=== PATIENT | male | born 1985 | race Caucasian/White ===

== ENCOUNTER 2020-10-27 11:18 | Emergency (ER) | payer OTHER, SELFPAY ==
[2020-10-27 11:23] VITALS: BP 144/87; PULSE 99; RESP 14; TEMP 37.1; O2SAT 99
== END 2020-10-27 12:45 | disposition left against medical advice (07) ==
DX: R21 Rash and other nonspecific skin eruption (principal)
CPT/HCPCS: 99199

== ENCOUNTER 2021-02-26 06:08 | Emergency (ER) | payer OTHER, SELFPAY ==
--- NOTE | ~2021-02-26 | CT_ITS ---
EXAMINATION: CT abdomen pelvis w con INDICATION: Abdominal pain TECHNIQUE: Computed tomographic images of the abdomen and pelvis were obtained after the administrati on of 100 cc of Omnipaque 350 intravenous contrast. The dose-length product (DLP) was 961.01 mGy-cm. Automated exposure control and iterative reconstruction technique were employed. COMPARISON: None available FINDINGS: The lung bases are clear. The heart size is normal. The liver, spleen, pancreas, and adrena l glands are normal. Stones are present in the neck of the gallbladder. There is subtle fat stranding around the gallbladder neck. The kidneys are unremarkable. No pathologically enlarged abdominal or p elvic lymph nodes are identified. The appendix is normal. There is no free intraperitoneal gas or kelsey dence of bowel obstruction. There is liquid stool throughout the colon to the level of the rectum. A tiny fat-containing umbilical hernia is noted. IMPRESSION: 1. Cholelithiasis with subtle fat stranding near the gallbladder neck which could reflect early kyle cystitis. Consider further evaluation with ultrasound and/or nuclear hepatobiliary scan. Reviewed, dictated and finalized at location A. IMPRESSION: 1. Cholelithiasis with subtle fat stranding near the gallbladder neck which cou ld reflect early cholecystitis. Consider further evaluation with ultrasound and /or nuclear hepatobiliary scan.
--- NOTE | ~2021-02-26 | US_ITS ---
EXAMINATION: US abdomen limited DATE: 02/26/2021 10:36 INDICATION: Right upper quadrant pain TECHNIQUE: Multiple grayscale and Doppler ultrasound images of the abdomen were obtained. COMPARISON: CT from today FINDINGS: The head and body of the pancreas are normal. The pancreatic tail is obscured by bowel gas. The liver is normal with normal echogenicity and echotexture. No surface nodularity. Normal hepatope brenda flow in the main portal vein. The gallstones identified on CT are not definitely identified. Ther e is mild wall thickening of the gallbladder which measures up to 6 mm. The normal common bile duct m easures 4 mm. There was no sonographic Jarrell sign although sensitivity can be decreased by pain medi cation. IMPRESSION: 1. Gallbladder wall thickening without identification of the stones seen on the comparison CT. Findin g is equivocal for acute cholecystitis. Reviewed, dictated and finalized at location A. IMPRESSION: 1. Gallbladder wall thickening without identification of the stones seen on the comparison CT. Finding is equivocal for acute cholecystitis.
--- NOTE | 2021-02-26 06:13 | ECG_ITS ---
Measurements Intervals [place] Rate: 78 P: 16 MI: 152 QRS: 61 QRSD: 105 T: 41 QT: 370 QTc: 423 Interpretive Statements SINUS RHYTHM WITH SINUS ARRHYTHMIA BASELINE ARTIFACT- II, III, AVF, V1, V4-V6 NORMAL ECG Electronically Signed On 02-26-2021 6:57:33 CDT by Seth Zuñiga D.O.
[2021-02-26 06:15] VITALS: BP 148/107; PULSE 81; RESP 12; TEMP 37.2; O2SAT 100
--- NOTE | 2021-02-26 06:29 | ED.GENADULT ---
HPI - General Adult General Chief complaint: Abdominal Pain <Estuardo Huitron MD - Last Filed: 02/26/21 07:18> Stated complaint: Abd pain <Estuardo Huitron MD - Last Filed: 02/26/21 07:18> Time Seen by Provider: 02/26/21 06:27 <Estuardo Huitron MD - Last Filed: 02/26/21 07:18> History of Present Illness HPI narrative: Patient 35-year-old gentleman who presents the emergency department with chief complaint of epigastric pain and right upper quadrant pain. The patient reports that the pain began this evening after he over ate patient reports he was eating tacos last night and started having pain in his right upper quadrant. Patient states it also is in the epigastric region. Patient denies fever denies chills reports that he took some Maalox laxatives and other things to try to calm his stomach. The patient states that his abdomen does not feel comfortable and reports that he cannot get comfortable and its been hurting all throughout the night constant <Estuardo Huitron MD - Last Filed: 02/26/21 07:18> Related Data Allergies/adverse reactions: Allergies Allergy/AdvReac Type Severity Reaction Status Date / Time No Known Allergies Allergy Verified 10/18/17 01:49 <Estuardo Huitron MD - Last Filed: 02/26/21 07:18> Review of Systems Review of Systems: A 10 system review of systems was completed on the patient and is negative except for what is stated in the HPI. Nursing and ancillary documentation was reviewed. <Estuardo Huitron MD - Last Filed: 02/26/21 07:18> Exam Narrative: GENERAL: Well-appearing, well-nourished, and in mild pain distress distress. HEAD: Normocephalic, atraumatic. EYES: PERRLA and EOMI. ENT: Nares clear, no rhinorrhea or epistaxis. Mucous membranes moist. NECK: Supple. CHEST: Clear to auscultation. No respiratory distress. HEART: Regular rate and rhythm. No murmur heard. Normal peripheral pulses. ABDOMEN: Soft, nontender, nondistended, normal active bowel sounds. EXTREMITIES: Normal range of motion. No edema. SKIN: Warm, dry, no rash. NEURO: No focal deficits. Alert and oriented x3. PSYCH: Normal mood and affect. <Estuardo Huitron MD - Last Filed: 02/26/21 07:18> Course Reevaluation(s) Reevaluation #1: Currently patient is asymptomatic, declined to be hospitalized for surgery. Promising to follow-up with the surgeon within the next 48 hours, but cannot have it today or tomorrow. <Anel Lebron MD - Last Filed: 02/26/21 11:10> Date: 02/26/21 <Anel Lebron MD - Last Filed: 02/26/21 11:10> Time: 11:03 <Anel Lebron MD - Last Filed: 02/26/21 11:10> Consultations Consultation #1: Dr. Hoang <Anel Lebron MD - Last Filed: 02/26/21 11:10> Date: 02/26/21 <Anel Lebron MD - Last Filed: 02/26/21 11:10> Time: 11:04 <Anel Lebron MD - Last Filed: 02/26/21 11:10> Vital Signs Vital signs: Vital Signs Temperature 37.2 C 02/26/21 06:15 Pulse Rate 81 02/26/21 06:15 Respiratory Rate 12 02/26/21 06:15 Blood Pressure 148/107 H 02/26/21 06:15 Pulse Oximetry 100 02/26/21 06:15 Temperature 37.2 C 02/26/21 06:15 Pulse Rate 66 02/26/21 10:15 Respiratory Rate 20 02/26/21 10:15 Blood Pressure 119/77 02/26/21 10:15 Pulse Oximetry 98 02/26/21 10:15 <Estuardo Huitron MD - Last Filed: 02/26/21 07:18> Vital Signs Temperature 37.2 C 02/26/21 06:15 Pulse Rate 81 02/26/21 06:15 Respiratory Rate 12 02/26/21 06:15 Blood Pressure 148/107 H 02/26/21 06:15 Pulse Oximetry 100 02/26/21 06:15 Temperature 37.2 C 02/26/21 06:15 Pulse Rate 66 02/26/21 10:15 Respiratory Rate 20 02/26/21 10:15 Blood Pressure 119/77 02/26/21 10:15 Pulse Oximetry 98 02/26/21 10:15 <Anel Lebron MD - Last Filed: 02/26/21 11:10> Medical Decision Making Vital Signs Vital Signs: Vital Signs Temperature
[2021-02-26] MEDS: SODIUM CHLORIDE 0.9% IV 1,000 ML 999 ML IV CONT (06:40)
[2021-02-26] MEDS: ONDANSETRON INJ 4 MG/2 ML VIAL IV PUSH (06:40)
[2021-02-26] MEDS: MORPHINE SULFATE (*CRX) 4 MG/ML INJ IV PUSH (06:40)
--- NOTE | 2021-02-26 06:43 | PC.NURSE ---
pt not able to urinate at this time. urinal at bedside with pt.
[2021-02-26 06:48] LABS: Basophils Absolute Auto 0.1 K/mm3 (0.0-0.1); Basophils Percent Auto 0.8 % (0.2-1.2); Eosinophils Absolute Auto 0.2 K/mm3 (0-0.3); Eosinophils Percent Auto 2.1 % (0-4.4); Hematocrit 43.1 % (42.0-52.0); Hemoglobin 14.2 g/dL (14.0-18.0); Immature Granulocyte Absolute 0.07 K/mm3 (0.00-0.031); Immature Granulocyte Percent A 0.7 % (0-0.5); Lymphocytes Absolute Auto 2.95 K/mm3 (0.9-3.2); Lymphocytes Percent Auto 27.9 % (18.3-44.2); Mean Corpuscular HGB Conc 32.9 g/dl (32-36); Mean Corpuscular Hemoglobin 28.8 pg (26-34); Mean Corpuscular Volume 87.4 fl (80-100); Mean Platelet Volume 9.3 fl (7.4-10.4); Monocytes Absolute Auto 0.8 K/mm3 (0.1-0.6); Monocytes Percent Auto 7.2 % (2.6-8.5); Neutrophils Absolute Auto 6.5 K/mm3 (1.3-6.7); Neutrophils Percent Auto 61.3 % (45.5-73.1); Platelet Count Result 316 k/mm3 (150-375); Red Blood Count 4.93 M/mm3 (4.6-6.20); Red Cell Distribution Width 13.3 % (11.5-14.5); White Blood Count 10.6 K/mm3 (4.5-10.0)
--- NOTE | 2021-02-26 06:56 | PC.NURSE ---
pt still not able to urinate at this time. refused straight cath.
[2021-02-26 06:58] VITALS: BP 136/86; PULSE 70; RESP 18; O2SAT 100
[2021-02-26 07:03] LABS: Lipase 118 U/L (23-300)
[2021-02-26 07:04] LABS: Alanine Aminotransferase 33 U/L (4-50); Albumin Level 4.4 g/dL (3.5-5.1); Alkaline Phosphatase 70 U/L (38-126); Anion Gap 3 mmol/L (8-16); Aspartate Amino Transferase 28 U/L (17-59); Bilirubin,Total 0.2 mg/dL (0.2-1.3); Blood Urea Nitrogen 18 mg/dL (9-20); Calcium 9.4 mg/dL (8.4-10.2); Carbon Dioxide 26 mmol/L (22-30); Chloride 106 mmol/L (98-107); Estimated Glomerular Filt Rate > 60; Glucose 130 mg/dL (65-110); Sodium 135 mmol/L (137-145)
[2021-02-26 07:16] LABS: Troponin I < 0.012 ng/mL (0.000-0.034)
[2021-02-26 07:52] LABS: Add Urine Microscopic? NO; Appearance Urine Clear (Clear); Bilirubin Urine Negative (Negative); Blood Urine Negative (Negative); Color Urine Yellow (Yellow); Glucose Urine UA Negative (Negative); Ketones Urine Negative (Negative); Leukocyte Esterase Ur Negative LEU/UL (Negative); Nitrate Urine Negative (Negative); Protein Urine Negative (Negative); Urobilinogen Urine Negative mg/dL (<2.0)
[2021-02-26 07:56] LABS: Specific Grav Ur 1.038 (1.001-1.035)
[2021-02-26 08:18] VITALS: BP 124/69; PULSE 65; RESP 20; O2SAT 99
[2021-02-26 09:19] VITALS: PULSE 63; RESP 20; O2SAT 99
[2021-02-26 10:15] VITALS: BP 119/77; PULSE 66; RESP 20; O2SAT 98
[2021-02-26 11:19] VITALS: BP 105/55; PULSE 78; RESP 18; O2SAT 98
== END 2021-02-26 11:19 | disposition home or self-care (01) ==
PROVIDERS: Emergency Medicine; Emergency Provider Emergency Medicine
DX: K81.9 Cholecystitis, unspecified (principal)
CPT/HCPCS: 36415; 74177; 76705; 80053; 81003; 83690; 84484; 85025; 93005; 96361; 96374; 96375; 99284; J2270; J2405; J7030; Q9967

== ENCOUNTER 2021-03-03 11:54 | Outpatient (CLI) | payer OTHER, SELFPAY ==
--- NOTE | ~2021-03-03 | NM_ITS ---
EXAMINATION: NM hepatobiliary wo pharm DATE: 03/03/2021 16:20 INDICATION: Bile duct calculus COMPARISON: Ultrasound and CT studies dated 02/26/2021 TECHNIQUE: mCi Tc-99m mebrofenin (Choletec) was administered intravenously. Scintigraphic images of the abdomen were obtained for one hour. Additional 4 hour delayed AP and lateral scintigrams were obt ained.. FINDINGS: There is normal clearance of radiotracer from the blood pool. There is homogeneous tracer u ptake by the liver. Activity progresses to the bowel. No gallbladder activity identified in the 4 ho urs of imaging with suggest acute cholecystitis. IMPRESSION: 1. Nonvisualization of the gallbladder over 4 hours of imaging which is consistent with acute cholec ystitis. Reviewed, dictated and finalized at location A. IMPRESSION: 1. Nonvisualization of the gallbladder over 4 hours of imaging which is consis tent with acute cholecystitis.
== END 2021-03-03 11:55 | disposition home or self-care (01) ==
LOC: ANHIMG 12:00
PROVIDERS: Visit Provider Nurse Practitioner
DX: K80.50 Calculus of bile duct without cholangitis or cholecystitis without obstruction (principal)
CPT/HCPCS: 78226; A9537

== ENCOUNTER 2021-03-04 11:23 | Outpatient (CLI) | payer OTHER, SELFPAY ==
[2021-03-09 19:24] LABS: H pylori Ag Stool Not Detected (Not Detected)
== END 2021-03-04 11:24 | disposition home or self-care (01) ==
LOC: ANHLAB 11:24
PROVIDERS: Visit Provider Surgery
DX: K80.50 Calculus of bile duct without cholangitis or cholecystitis without obstruction (principal); R10.11 Right upper quadrant pain
CPT/HCPCS: 87338

== ENCOUNTER 2021-03-30 05:30 | Emergency (ER) | payer OTHER, SELFPAY ==
--- NOTE | ~2021-03-30 | US_ITS ---
EXAMINATION: US abdomen limited DATE: 03/30/2021 07:49 INDICATION: Cholelithiasis presenting with right upper quadrant abdominal pain. TECHNIQUE: Multiple grayscale and Doppler ultrasound images of the abdomen were obtained. COMPARISON: 02/26/2021 FINDINGS: The region of the pancreas is obscured by shadowing gas in the stomach. Liver has normal echogenicity and contour, with a smooth surface. No liver lesion identified. No intrahepatic biliary duct dilatio n suspected. Portal venous flow was seen in the hepatopetal, normal direction and has normal Doppler waveform. Again seen are a few shadowing gallstones and hypoechoic sludge in the dependent aspect of the normal-appearing gallbladder. Sonographic Jarrell sign was reported as negative by the wrist liner .Common bile duct measures 4 mm diameter which is normal. IMPRESSION: 1. Cholelithiasis. Reviewed, dictated and finalized at location A. IMPRESSION: 1. Cholelithiasis.
--- NOTE | 2021-03-30 05:37 | ED.ABDPAIN ---
HPI - Abdominal Pain General Chief Complaint: Abdominal Pain Stated Complaint: gallbladder attack Time Seen by Provider: 03/30/21 05:36 Source: patient and family Mode of arrival: ambulatory Limitations: no limitations History of Present Illness HPI narrative: Patient is a 35-year-old male with a history of biliary colic who presents for evaluation of right upper quadrant abdominal pain. Patient reports the pain awakened him from sleep approximately an hour ago. It is severe in nature, located in the right upper quadrant with mild radiation to the right back. No ripping or tearing sensation to the flank. No chest pain, palpitations or shortness of breath. Patient denies fever or chills. He reports nausea without vomiting. He denies lower abdominal pain, diarrhea, constipation or urinary symptoms. Patient has a history of biliary colic in the past which she was seen at this facility in February and has followed up with Dr. Hoang outpatient. Patient had a HIDA scan which showed abnormal bile flow, abnormal valve function per the patient. Patient saw Dr. Hoang in the office yesterday and is scheduled for surgery on April 12. Related Data Allergies Allergy/AdvReac Type Severity Reaction Status Date / Time No Known Allergies Allergy Verified 03/30/21 05:48 Review of Systems Review of Systems: CONSTITUTIONAL: Denies fever, chills, or sweats. ENT: Denies rhinorrhea, congestion CARDIOVASCULAR: Denies chest pain, palpitations, or edema. RESPIRATORY: Denies cough or dyspnea. GASTROINTESTINAL: Reports abdominal pain, nausea without vomiting, denies diarrhea GENITOURINARY: Denies dysuria or hematuria. SKIN: Denies rash or itching. MUSCULOSKELETAL: Denies middle back pain, joint pain, or myalgia. [facility] Past Medical History Medical History Biliary colic BMI 34.0-34.9,adult Cholecystitis History of bronchitis RUQ abdominal pain Smoker Surgical History Surgical History S/P foot surgery, left Family History Family History Mother Cerebrovascular accident Acute myocardial infarction Unknown Diabetes mellitus Cerebrovascular accident Hypertension Social History Social History Smoking status: Current every day smoker Alcohol intake: never Exam Narrative: GENERAL: Awake, alert, conversant HEAD: Normocephalic, atraumatic. EYES: PERRLA and EOMI. ENT: Nares clear, no rhinorrhea or epistaxis. Mucous membranes moist. NECK: Supple. CHEST: No respiratory distress, breathing even and non labored HEART: Regular rate, sinus rhythm ABDOMEN:Non distended, right upper quadrant abdominal pain on exam, positive guarding, no rebound, no rigidity, no epigastric pain EXTREMITIES: Normal range of motion. No edema. SKIN: Warm, dry, no rash. NEURO:No focal deficits. Alert and oriented x3 Course Vital Signs Vital signs: Vital Signs Temperature 36.7 C 03/30/21 05:43 Pulse Rate 83 03/30/21 05:43 Respiratory Rate 20 03/30/21 05:43 Blood Pressure 151/92 H 03/30/21 05:43 Pulse Oximetry 97 03/30/21 05:43 Temperature 36.7 C 03/30/21 05:43 Pulse Rate 83 03/30/21 05:43 Respiratory Rate 20 03/30/21 05:43 Blood Pressure 151/92 H 03/30/21 05:43 Pulse Oximetry 97 03/30/21 05:43 MDM - Abdominal Pain MDM Narrative Medical decision making narrative: Pt with RUQ abdominal pain. Pt with history of biliary colic. Pt with symptoms consistent with this at this point. No leukocytosis. No significant anemia. No transaminitis. No elevation in lipase. No LOC. No hyperbilirubinemia. Pt awaiting RUQ US. Signed out to oncoming physician Dr. Lebron, who will dictate the ultimate care of this patient. Differential Diagnosis Differential diagnosis: Likely abdominal pain, constipation, diverticulitis, gastroenteritis and pancreatitis Lab Data Attestation:
[2021-03-30 05:43] VITALS: BP 151/92; PULSE 83; RESP 20; TEMP 36.7; O2SAT 97
[2021-03-30] MEDS: SODIUM CHLORIDE 0.9% IV 1,000 ML 999 ML IV CONT (05:58)
[2021-03-30] MEDS: MORPHINE SULFATE (*CRX) 4 MG/ML INJ IV PUSH (05:58)
[2021-03-30] MEDS: ONDANSETRON INJ 4 MG/2 ML VIAL IV PUSH (05:58)
[2021-03-30 06:10] LABS: Basophils Absolute Auto 0.1 K/mm3 (0.0-0.1); Eosinophils Absolute Auto 0.2 K/mm3 (0-0.3); Eosinophils Percent Auto 2.9 % (0-4.4); Hematocrit 39.7 % (42.0-52.0); Hemoglobin 12.8 g/dL (14.0-18.0); Immature Granulocyte Absolute 0.02 K/mm3 (0.00-0.031); Immature Granulocyte Percent A 0.3 % (0-0.5); Lymphocytes Absolute Auto 2.84 K/mm3 (0.9-3.2); Lymphocytes Percent Auto 39.7 % (18.3-44.2); Mean Corpuscular HGB Conc 32.2 g/dl (32-36); Mean Corpuscular Hemoglobin 28.2 pg (26-34); Mean Corpuscular Volume 87.4 fl (80-100); Mean Platelet Volume 9.5 fl (7.4-10.4); Monocytes Absolute Auto 0.7 K/mm3 (0.1-0.6); Monocytes Percent Auto 10.3 % (2.6-8.5); Neutrophils Absolute Auto 3.3 K/mm3 (1.3-6.7); Neutrophils Percent Auto 45.8 % (45.5-73.1); Platelet Count Result 288 k/mm3 (150-375); Red Blood Count 4.54 M/mm3 (4.6-6.20); Red Cell Distribution Width 12.9 % (11.5-14.5); White Blood Count 7.2 K/mm3 (4.5-10.0)
[2021-03-30 06:39] LABS: Alanine Aminotransferase 28 U/L (4-50); Albumin Level 3.7 g/dL (3.5-5.1); Alkaline Phosphatase 69 U/L (38-126); Anion Gap 6 mmol/L (8-16); Aspartate Amino Transferase 24 U/L (17-59); Bilirubin,Total 0.1 mg/dL (0.2-1.3); Blood Urea Nitrogen 16 mg/dL (9-20); Calcium 8.9 mg/dL (8.4-10.2); Carbon Dioxide 27 mmol/L (22-30); Chloride 107 mmol/L (98-107); Estimated CRCL calculation 129 ml/min; Estimated Glomerular Filt Rate > 60; Glucose 139 mg/dL (65-110); Lipase 99 U/L (23-300); Potassium 3.5 mmol/L (3.4-5.0); Sodium 140 mmol/L (137-145)
[2021-03-30 07:30] VITALS: BP 130/85; PULSE 63; RESP 16; O2SAT 99
[2021-03-30 07:56] LABS: Platelet Estimate Adequate (Adequate)
[2021-03-30 07:57] LABS: Atypical Lymphocytes Present
[2021-03-30 11:21] VITALS: BP 129/78; PULSE 76; RESP 16; O2SAT 99
== END 2021-03-30 11:20 | disposition home or self-care (01) ==
PROVIDERS: Emergency Medicine; Emergency Provider Emergency Medicine
DX: R10.11 Right upper quadrant pain (principal); K80.20 Calculus of gallbladder without cholecystitis without obstruction; F17.200 Nicotine dependence, unspecified, uncomplicated
CPT/HCPCS: 36415; 76705; 80053; 83690; 85025; 96361; 96374; 96375; 99284; J2270; J2405; J7030

== ENCOUNTER 2021-04-08 13:46 | Outpatient (CLI) | payer OTHER, SELFPAY ==
[2021-04-08 14:13] LABS: Basophils Absolute Auto 0.1 K/mm3 (0.0-0.1); Eosinophils Absolute Auto 0.2 K/mm3 (0-0.3); Eosinophils Percent Auto 2.5 % (0-4.4); Hematocrit 40.9 % (42.0-52.0); Hemoglobin 13.6 g/dL (14.0-18.0); Immature Granulocyte Absolute 0.04 K/mm3 (0.00-0.031); Immature Granulocyte Percent A 0.5 % (0-0.5); Lymphocytes Absolute Auto 3.36 K/mm3 (0.9-3.2); Lymphocytes Percent Auto 40.5 % (18.3-44.2); Mean Corpuscular HGB Conc 33.3 g/dl (32-36); Mean Corpuscular Hemoglobin 29.6 pg (26-34); Mean Corpuscular Volume 88.9 fl (80-100); Mean Platelet Volume 9.1 fl (7.4-10.4); Monocytes Percent Auto 11.8 % (2.6-8.5); Neutrophils Absolute Auto 3.6 K/mm3 (1.3-6.7); Neutrophils Percent Auto 43.7 % (45.5-73.1); Platelet Count Result 274 k/mm3 (150-375); Red Cell Distribution Width 13.2 % (11.5-14.5); White Blood Count 8.3 K/mm3 (4.5-10.0)
[2021-04-08 14:21] LABS: Alanine Aminotransferase 33 U/L (4-50); Albumin Level 4.3 g/dL (3.5-5.1); Alkaline Phosphatase 69 U/L (38-126); Amylase 56 U/L (30-110); Anion Gap 8 mmol/L (8-16); Aspartate Amino Transferase 30 U/L (17-59); Bilirubin,Total 0.4 mg/dL (0.2-1.3); Blood Urea Nitrogen 13 mg/dL (9-20); Calcium 9.5 mg/dL (8.4-10.2); Carbon Dioxide 28 mmol/L (22-30); Chloride 103 mmol/L (98-107); Estimated Glomerular Filt Rate > 60; Glucose 112 mg/dL (65-110); Lipase 53 U/L (23-300); Potassium 3.8 mmol/L (3.4-5.0); Sodium 139 mmol/L (137-145)
== END 2021-04-08 13:47 | disposition home or self-care (01) ==
PROVIDERS: Visit Provider Surgery
DX: K81.9 Cholecystitis, unspecified (principal); Z01.818 Encounter for other preprocedural examination
CPT/HCPCS: 36415; 80053; 82150; 82248; 83690; 85025

== ENCOUNTER 2021-04-12 00:26 | Day surgery (SDC) | payer OTHER, SELFPAY ==
[2021-04-04 14:54] VITALS: BMI 34.2
[2021-04-12] VITALS (11 sets, daily range): BP systolic 121–155; BP diastolic 70–90; PULSE 62–89; RESP 10–18; TEMP 35.9–36.6; O2SAT 95–100
--- NOTE | 2021-04-12 11:29 | P.PNAN_ITS ---
Anes - Initial Pre Proc Eval Procedure: Operation Date: 04/12/21 11:45 Proposed Procedures p Laparoscopic Cholecystectomy, Possible Intraoperative Cholangiogram, Possible Open - Rakesh Hoang MD Date/Time: 04/12/21 11:29 Surgeon: Rakesh Hoang MD Pre Op Diagnosis: cholecystitis Patient Data Age: 35 Gender: M Height: 1.73 m Weight: 102 kg Allergies Allergy/AdvReac Type Severity Reaction Status Date / Time No Known Allergies Allergy Verified 04/12/21 11:00 Home Medications Medication Instructions Recorded Confirmed Type hydrocodone 5 mg-acetaminophen 325 1 tablet PO Q8H PRN #10 tablet 03/07/21 04/12/21 Rx mg tablet Patient hx anesthesia problems: none Family hx anesthesia problems: none Results Review: All pre-operative results and documents have been reviewed as part of the pre-operative evaluation. [facility] Past Medical History Medical History Biliary colic BMI 34.0-34.9,adult Cholecystitis History of bronchitis RUQ abdominal pain Smoker Surgical History Surgical History S/P foot surgery, left Family History Family History Mother Cerebrovascular accident Acute myocardial infarction Unknown Diabetes mellitus Cerebrovascular accident Hypertension Social History Social History Smoking packs per day: 1 Smoking cigarettes per day: 20.0 Years smoked: 15 Smoking pack-years: 15.00 Smoking status: Current every day smoker Tobacco type: cigarettes Alcohol intake: never Substance use: never Substance use type: does not use Living arrangements: with friend(s) Spiritual care concerns: No Anes - Eval Final PreProcedure Day of Procedure 04/12/21 11:29 Patient weight: obese Heart: regular rate and rhythm Lungs: decreased breath sounds Airway: Mallampati scale class II Neurological: alert and oriented Last oral intake: >/= 8 hours ASA classification: II Emergent: no Anesthetic plan: proceed Anesthesia type and monitoring: general ETT and standard monitoring Results Review: All pre-operative results and documents have been reviewed as part of the pre-operative evaluation. Informed Consent: The patient's anesthetic plan and its attendant risks and bene fits were discussed with the patient/family/POA. Questions were solicited and answers provided to the satisfaction of the patient/family/POA.
[2021-04-12] MEDS: LACTATED RINGERS 1,000 ML 30 ML IV CONT ×2 (11:30→14:05)
[2021-04-12] MEDS: ACETAMINOPHEN 500 MG TABLET 1000 MG PO (11:32)
[2021-04-12] MEDS: KETOROLAC 15 MG/ML VIAL (*BKC) IV PUSH (11:32)
--- NOTE | 2021-04-12 11:50 | WPDHPUPDATE1 ---
History and Physical Update Update Date/Time: 04/12/21 11:50 History and Physical has been reviewed, including an updated exam of the patient. There are NO changes in the patient's condition. Risks, benefits, and alternatives have been discussed and questions answered. Patient agrees to proceed with procedure.
[2021-04-12] MEDS: ceFAZolin 2 GM/D5W 50 ML 2 GM/50 ML BAG IVPB (11:54)
[2021-04-12] MEDS: BUPIVACAINE HCL 0.5% PF 30 ML VIAL INFILTRATE (12:30)
--- NOTE | 2021-04-12 14:09 | W.PM.PROC2 ---
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 However the patient was not having much pain therefore we waited a good time to let all the inflammatory process settle down and try to perform his gallbladder surgery in a less acute situation. Findings The gallbladder looked fairly normal on its most upper anterior half. The lower half was densely adhered to omental adhesions. A small yellow stone could be seen through this thin gallbladder wall at the neck. Description of Procedure Procedure Details: Patient was seen preoperatively in the holding area and risks, benefits and alternatives confirmed. Patient was taken to the operating room and general anesthesia was induced. A time out was then preformed with the surgery team confirming patient and site of surgery. The abdomen was prepped and draped in the usual sterile fashion. Incision was made just below the umbilicus. Two stay sutures of O- Vicryl were used to elevate the mid-line fascia beneath the umbilicus and a small incision was made under direct vision. The peritoneum was entered. The 12 mm Jj cannula was introduced under direct vision. First under low flow and then under high flow the abdomen was insufflated with carbon dioxide never exceeding a pressure of 14. Three 5 mm trocars were then introduced under direct vision. The following trocars were introduced under direct vision: a 5 mm in the epigastrium and two 5 mm trocars along the right costal margin. There were significant adhesions of the omentum to the underside of the gallbladder and these were taken down with blunt and sharp dissection. These were well formed and fairly dense but they came down fairly well with a slow methodical dissection. I was able to delineate the neck of the gallbladder and a short cystic duct. As we were putting tension on the lower part of the gallbladder to dissect it we could see a yellowish stone at the neck through with a thin gallbladder wall. The cystic duct seemed to be only about 1 cm long. Bovie cautery was used for hemostasis. I used a combination of blunt and sharp dissection to delineate the triangle of Calot. The gall bladder was grasped and the cystic duct and artery were dissected free and I carefully identified a window of safety with only two other structures in the area being the cystic duct and the cystic artery.(which did branch near the gallbladder). I then used a 5 mm endo-clip medical office receptionist assistant to place 2 clips on the patient's side 1 on the gallbladder side on the cystic artery and 1 clip on the gallbladder side of the cystic duct and the the cystic duct was also clipped with a 5 mm endoclip-medical office receptionist assistant placing 2 clips on the patient's side of the cystic duct. The cystic duct was then transected. The cystic artery was also transected at this point. The gall bladder was removed using electrocautery and then removed [using a large 10 mm grasper] via the umbilical incision. The trocars were removed visualizing hemostasis and the remaining gas evacuated. The large trocar site at the umbilicus was closed with [an 0 vicryl figure of 8 suture][with several interrupted sutures of 0 Vicryl because of the increased size of the opening at the umbilicus required to remove the gallbladder]. The 2 stay sutures mentioned above on either side of the fascia were also tied together to help approximate this midline fascia. Further local anesthetic was placed into each incision for postop pain control. The skin incisions were closed with subcuticular suture of [4-0 Monocryl]. Surgical glue then was applied to all the incisions. Patient tolerated the procedure well was taken to
== END 2021-04-12 16:25 | disposition home or self-care (01) ==
PROVIDERS: Visit Provider Surgery
PROC: 0FT44ZZ Resection of Gallbladder, Percutaneous Endoscopic Approach (ICD-10-PCS; CPT 47562; principal; 2021-04-12 11:45)
DX: K80.10 Calculus of gallbladder with chronic cholecystitis without obstruction (principal); F17.210 Nicotine dependence, cigarettes, uncomplicated; E66.9 Obesity, unspecified; Z68.33 Body mass index [BMI] 33.0-33.9, adult
CPT/HCPCS: 47562; 88304; A9270; J0690; J1100; J1885; J2250; J2405; J2704; J2710; J3010; J7030; J7120; Q9966

== ENCOUNTER 2021-05-27 12:21 | Outpatient (CLI) | payer OTHER, SELFPAY ==
[2021-05-27 13:03] LABS: Hemoglobin 13.8 g/dL (14.0-18.0); Mean Corpuscular HGB Conc 33.7 g/dl (32-36); Mean Corpuscular Hemoglobin 29.7 pg (26-34); Mean Corpuscular Volume 88.2 fl (80-100); Mean Platelet Volume 9.1 fl (7.4-10.4); Platelet Count Result 312 k/mm3 (150-375); Red Blood Count 4.65 M/mm3 (4.6-6.20); White Blood Count 9.1 K/mm3 (4.5-10.0)
[2021-05-27 13:20] LABS: Alanine Aminotransferase 32 U/L (4-50); Albumin Level 4.2 g/dL (3.5-5.1); Alkaline Phosphatase 72 U/L (38-126); Anion Gap 5 mmol/L (8-16); Aspartate Amino Transferase 29 U/L (17-59); Bilirubin,Total 0.4 mg/dL (0.2-1.3); Blood Urea Nitrogen 16 mg/dL (9-20); Calcium 9.8 mg/dL (8.4-10.2); Carbon Dioxide 31 mmol/L (22-30); Chloride 102 mmol/L (98-107); Estimated Glomerular Filt Rate > 60; Glucose 122 mg/dL (65-110); Lipase 67 U/L (23-300); Potassium 4.1 mmol/L (3.4-5.0); Sodium 138 mmol/L (137-145)
== END 2021-05-27 12:22 | disposition home or self-care (01) ==
PROVIDERS: Visit Provider Surgery
DX: R10.11 Right upper quadrant pain (principal)
CPT/HCPCS: 36415; 80053; 83690; 85027

== ENCOUNTER 2021-06-02 08:36 | Emergency (ER) | payer OTHER, SELFPAY ==
[2021-06-02] VITALS (36 sets, daily range): BP systolic 115–148; BP diastolic 63–99; PULSE 56–90; RESP 12–22; TEMP 36.6; O2SAT 95–100
--- NOTE | ~2021-06-02 | XR_ITS ---
EXAMINATION: XR chest 2V EXAM DATE: 06/02/2021 09:21 INDICATION: Shortness of air, right upper quadrant pain. TECHNIQUE: Frontal and lateral projections of the chest obtained and reviewed. There is no prior monica dy for comparison. FINDINGS: There are cholecystectomy clips. The lungs are clear. There are no pleural effusions. Th e cardiomediastinal silhouette is within normal limits. There is no pneumothorax suspected. The bon es and soft tissues are unremarkable. IMPRESSION: Unremarkable chest x-ray exam. Reviewed, dictated and finalized at location B. [employer]
[2021-06-02 09:08] LABS: Basophils Absolute Auto 0.1 K/mm3 (0.0-0.1); Basophils Percent Auto 0.9 % (0.2-1.2); Eosinophils Absolute Auto 0.2 K/mm3 (0-0.3); Eosinophils Percent Auto 1.9 % (0-4.4); Hematocrit 40.8 % (42.0-52.0); Hemoglobin 13.6 g/dL (14.0-18.0); Immature Granulocyte Absolute 0.04 K/mm3 (0.00-0.031); Immature Granulocyte Percent A 0.4 % (0-0.5); Lymphocytes Absolute Auto 3.08 K/mm3 (0.9-3.2); Lymphocytes Percent Auto 34.3 % (18.3-44.2); Mean Corpuscular HGB Conc 33.3 g/dl (32-36); Mean Corpuscular Hemoglobin 29.3 pg (26-34); Mean Corpuscular Volume 87.9 fl (80-100); Mean Platelet Volume 9.2 fl (7.4-10.4); Monocytes Absolute Auto 0.8 K/mm3 (0.1-0.6); Neutrophils Absolute Auto 4.8 K/mm3 (1.3-6.7); Neutrophils Percent Auto 53.5 % (45.5-73.1); Platelet Count Result 295 k/mm3 (150-375); Red Blood Count 4.64 M/mm3 (4.6-6.20); Red Cell Distribution Width 12.8 % (11.5-14.5)
--- NOTE | 2021-06-02 09:16 | PC.NURSE ---
Pt gone to Xray
[2021-06-02 09:17] LABS: Alanine Aminotransferase 32 U/L (4-50); Albumin Level 4.4 g/dL (3.5-5.1); Alkaline Phosphatase 75 U/L (38-126); Anion Gap 6 mmol/L (8-16); Aspartate Amino Transferase 28 U/L (17-59); Bilirubin,Total 0.4 mg/dL (0.2-1.3); Blood Urea Nitrogen 13 mg/dL (9-20); Calcium 9.4 mg/dL (8.4-10.2); Carbon Dioxide 29 mmol/L (22-30); Chloride 101 mmol/L (98-107); Estimated CRCL calculation 127 ml/min; Estimated Glomerular Filt Rate > 60; Glucose 110 mg/dL (65-110); Lipase 61 U/L (23-300); Potassium 4.3 mmol/L (3.4-5.0); Sodium 136 mmol/L (137-145)
[2021-06-02] MEDS: MORPHINE SULFATE (*CRX) 4 MG/ML INJ IV PUSH (09:26)
[2021-06-02 09:34] LABS: Add Urine Microscopic? NO; Appearance Urine Clear (Clear); Bilirubin Urine Negative (Negative); Blood Urine Negative (Negative); Color Urine Yellow (Yellow); Glucose Urine UA Negative (Negative); Ketones Urine Negative (Negative); Leukocyte Esterase Ur Negative LEU/UL (Negative); Nitrate Urine Negative (Negative); Protein Urine Negative (Negative); Specific Grav Ur 1.027 (1.001-1.035); Urobilinogen Urine Negative mg/dL (<2.0)
[2021-06-02 10:09] LABS: D Dimer 0.33 ug/mL (<0.48)
[2021-06-02] MEDS: SODIUM CHLORIDE 0.9% IV 1,000 ML 999 ML IV CONT (10:42)
--- NOTE | 2021-06-02 11:18 | ED.ABDPAIN ---
HPI - Abdominal Pain General Chief Complaint: Abdominal Pain Stated Complaint: RUQ abd pain Time Seen by Provider: 06/02/21 08:38 History of Present Illness HPI narrative: Patient is a 35-year-old male who presents ER with right upper quadrant pain. Intermittent over the last week. Feels like gallbladder pain they had previously however he has had his gallbladder taken out. No association with food. He has been started on reflux medication by his general surgeon which has not helped. Occasionally it will make him feel like he cannot breathe but he has no chest pain or dyspnea on exertion. No cough or hemoptysis. No lower extremity swelling or cramping in the legs. Due to persistent nature of the pain he came to the ER to be evaluated. Related Data Allergies Allergy/AdvReac Type Severity Reaction Status Date / Time No Known Allergies Allergy Verified 05/04/21 11:45 Review of Systems Review of Systems: All systems reviewed & are unremarkable except as noted in HPI and below Constitutional: Constitutional: Denies chills and Denies fever(s) ENT: Denies nasal congestion Cardiovascular: Cardiovascular: Denies chest pain, Denies rapid heart rate and Denies radiating jaw, neck or arm pain Respiratory: Respiratory: Denies cough, Reports dyspnea and Denies wheezing Gastrointestinal: Gastrointestinal: Reports abdominal pain, Denies diarrhea, Denies nausea and Denies vomiting Genitourinary: Genitourinary: Denies dysuria and Denies urinary frequency PMFSH Past Medical History Medical History Biliary colic BMI 34.0-34.9,adult Cholecystitis History of bronchitis RUQ abdominal pain Smoker Surgical History Surgical History S/P foot surgery, left Family History Family History Mother Cerebrovascular accident Acute myocardial infarction Unknown Diabetes mellitus Cerebrovascular accident Hypertension Social History Social History Smoking packs per day: 1 Smoking cigarettes per day: 20.0 Years smoked: 15 Smoking pack-years: 15.00 Smoking status: Current every day smoker Tobacco type: cigarettes Alcohol intake: never Substance use: never Substance use type: does not use Spiritual care concerns: No Exam Narrative: GENERAL: Well-appearing, well-nourished, and in no acute distress. HEAD: Normocephalic, atraumatic. ENT: Mucous membranes moist. CHEST: Clear to auscultation. No respiratory distress. HEART: Regular rate and rhythm. Normal peripheral pulses. ABDOMEN: Soft, nontender, nondistended. EXTREMITIES: Normal range of motion. No edema. SKIN: Warm, dry, no rash. NEURO: Alert and oriented x3. PSYCH: Normal mood and affect. Course Course Emergency Course: Unremarkable evaluation. Patient formed results. Discharge home. Will trial with dicyclomine to see if this helps with abdominal cramping. Vital Signs Vital signs: Vital Signs Temperature 97.8 F 06/02/21 09:06 Pulse Rate 65 06/02/21 09:06 Respiratory Rate 18 06/02/21 09:06 Blood Pressure 148/87 H 06/02/21 09:06 Pulse Oximetry 100 06/02/21 09:06 Temperature 97.8 F 06/02/21 09:15 Pulse Rate 76 06/02/21 11:31 Respiratory Rate 19 06/02/21 11:31 Blood Pressure 120/71 06/02/21 11:31 Pulse Oximetry 100 06/02/21 11:31 MDM - Abdominal Pain Lab Data Result diagrams: 06/02/21 08:57 06/02/21 08:57 Labs: Lab Results 06/02/21 06/02/21 06/02/21 Range/Units 08:57 08:57 08:58 WBC 9.0 (4.5-10.0) K/mm3 RBC 4.64 (4.6-6.20) M/mm3 Hgb 13.6 L (14.0-18.0) g/dL Hct 40.8 L (42.0-52.0) % MCV 87.9 (80-100) fl MCH 29.3 (26-34) pg MCHC 33.3 (32-36) g/dl RDW 12.8 (11.5-14.5) % Plt Count 295 (150-375) k/mm3 MPV 9.2 (7.4-10.4) fl Immature Gran % (Auto) 0.
== END 2021-06-02 13:13 | disposition home or self-care (01) ==
PROVIDERS: Emergency Provider Emergency Medicine; PCP Surgery
DX: R10.11 Right upper quadrant pain (principal); F17.210 Nicotine dependence, cigarettes, uncomplicated
CPT/HCPCS: 36415; 71046; 80053; 81003; 83690; 85025; 85380; 96361; 96374; 99284; J2270; J7030

== ENCOUNTER 2021-06-06 05:29 | Emergency (ER) | payer OTHER, SELFPAY ==
--- NOTE | ~2021-06-06 | CT_ITS ---
EXAMINATION: CT chest abdomen pelvis w con EXAM DATE: 06/06/2021 06:50 INDICATION: Right chest pain, RUQ abd pain, recent kyle. TECHNIQUE: Spiral CT of the chest, abdomen and pelvis was performed following intravenous injection o f 100 mL Omnipaque 350. Axial, coronal and sagittal images chest, abdomen and pelvis were reviewed. Coronal maximum intensity pixel images of chest reviewed. The dose-length product (DLP) for this ex amination was 1321.86 mGy-cm. The exposure was tailored according to patient size (auto mA exposure control), and iterative reconstruction (ASIR) was used as additional dose reduction technique. Compar nelda is made to prior examination from 02/26/2021. FINDINGS: CHEST: The lungs are clear. There are no pleural or pericardial effusions. Tracheobronchial tree is patent. There is no mediastinal, hilar or axillary lymphadenopathy. There is no pneumothorax. Heart normal in size. No evidence of coronary arterial calcification. ABDOMEN PELVIS: Possible central 1 cm flash filling hemangioma. The liver, spleen, adrenal glands an d pancreas are otherwise unremarkable. There are cholecystectomy clips. Common bile duct is normal i n caliber. There is a mildly dilated appearing cystic duct remnant with mild adjacent fat stranding. Portal and splenic veins are patent. Kidneys enhance symmetrically. There is no hydronephrosis. The prostate is unremarkable. The bladder is unremarkable. There is no retroperitoneal or pelvic ly mphadenopathy. The appendix is normal. The stomach and small bowel are unremarkable. There is expected amount of c olonic stool. No free intraperitoneal gas. There are no osteoblastic or osteolytic lesions identi fied. Mild compression fracture superior endplate of T11, chronic. IMPRESSION: Mildly dilated cystic duct remnant with mild adjacent inflammation. This could be within normal limits if cholecystectomy was recent. Normal size common bile and proper hepatic ducts. Reviewed, dictated and finalized at [facility]
[2021-06-06 05:38] VITALS: BP 155/86; PULSE 75; RESP 22; TEMP 36.6; O2SAT 98
--- NOTE | 2021-06-06 05:39 | ED.ABDPAIN ---
HPI - Abdominal Pain General Chief Complaint: Abdominal Pain <Juliet Branham MD - Last Filed: 06/06/21 07:43> Stated Complaint: abd pain <Juliet Branham MD - Last Filed: 06/06/21 07:43> Time Seen by Provider: 06/06/21 05:38 <Juliet Branham MD - Last Filed: 06/06/21 07:43> Source: patient and family <Juliet Branham MD - Last Filed: 06/06/21 07:43> Mode of arrival: ambulatory <Juliet Branham MD - Last Filed: 06/06/21 07:43> Limitations: no limitations <Juliet Branham MD - Last Filed: 06/06/21 07:43> History of Present Illness HPI narrative: Patient is a 35-year-old male with a history of cholecystectomy presenting for evaluation of recurrent right upper quadrant abdominal pain. Patient states he has had increased, daily right upper quadrant abdominal pain over the past 2 weeks. Worsening in nature, was so severe this morning which prompted his evaluation. Patient reports associated nausea without vomiting. No abdominal tension. Denies lower abdominal pain. Denies chest pain, shortness of breath but does report that pain originates in his right lower rib cage and wraps around to the right rib. No ripping or tearing sensation to the flank. Denies diarrhea or constipation. No urinary symptoms. Patient states that the pain had completely subsided following the cholecystectomy and now has been almost constant. He had tried acid reflux medication without improvement in his symptoms. Patient was seen here on June 02 with work-up including blood work, chest x-ray, D-dimer which was negative. <Juliet Branham MD - Last Filed: 06/06/21 07:43> Related Data Allergies/Adverse Reactions: Allergies Allergy/AdvReac Type Severity Reaction Status Date / Time No Known Allergies Allergy Verified 05/04/21 11:45 <Juliet Branham MD - Last Filed: 06/06/21 07:43> Review of Systems Review of Systems: CONSTITUTIONAL: Denies fever, chills, or sweats. EYES: Denies visual changes, redness, or discharge. ENT: Denies rhinorrhea, congestion, sore throat, or otalgia. CARDIOVASCULAR: Denies chest pain, palpitations, or edema. RESPIRATORY: Denies cough or dyspnea. GASTROINTESTINAL: Reports right upper quadrant abdominal pain, nausea, vomiting GENITOURINARY: Denies dysuria or hematuria. SKIN: Denies rash or itching. MUSCULOSKELETAL: Denies back pain, joint pain, or myalgia. NEUROLOGIC: Denies headache, numbness, or weakness. <Juliet Branham MD - Last Filed: 06/06/21 07:43> [facility] Past Medical History Medical History: Medical History Biliary colic BMI 34.0-34.9,adult Cholecystitis History of bronchitis RUQ abdominal pain Smoker <Juliet Branham MD - Last Filed: 06/06/21 07:43> Surgical History Surgical History: Surgical History S/P foot surgery, left <Juliet Branham MD - Last Filed: 06/06/21 07:43> Family History Family History: Family History Mother Cerebrovascular accident Acute myocardial infarction Unknown Diabetes mellitus Cerebrovascular accident Hypertension <Juliet Branham MD - Last Filed: 06/06/21 07:43> Social History Social History: Social History Smoking packs per day: 1 Smoking cigarettes per day: 20.0 Years smoked: 15 Smoking pack-years: 15.00 Smoking status: Current every day smoker Tobacco type: cigarettes Alcohol intake: never Substance use: never Substance use type: does not use Spiritual care concerns: No <Juliet Branham MD - Last Filed: 06/06/21 07:43> Exam Narrative: GENERAL: Awake, alert, in mild distress HEAD: Normocephalic, atraumatic. EYES: PERRLA and EOMI. ENT: Nares clear, no rhinorrhea or epistaxis. Mucous membranes moist. NECK: Supple. CHEST: No respiratory distress, breathing even and non labored
--- NOTE | 2021-06-06 06:09 | ECG_ITS ---
Measurements Intervals [place] Rate: 61 P: 28 TX: 173 QRS: 53 QRSD: 105 T: 52 QT: 391 QTc: 395 Interpretive Statements SINUS RHYTHM WITH SINUS ARRHYTHMIA NORMAL ECG Electronically Signed On 06-06-2021 6:43:04 BONDING MACHINE OPERATOR by Seth Zuñiga D.O.
[2021-06-06 06:14] LABS: Basophils Absolute Auto 0.1 K/mm3 (0.0-0.1); Basophils Percent Auto 0.7 % (0.2-1.2); Eosinophils Absolute Auto 0.3 K/mm3 (0-0.3); Eosinophils Percent Auto 2.5 % (0-4.4); Hematocrit 38.6 % (42.0-52.0); Hemoglobin 12.9 g/dL (14.0-18.0); Immature Granulocyte Absolute 0.04 K/mm3 (0.00-0.031); Immature Granulocyte Percent A 0.4 % (0-0.5); Lymphocytes Absolute Auto 2.85 K/mm3 (0.9-3.2); Lymphocytes Percent Auto 28.6 % (18.3-44.2); Mean Corpuscular HGB Conc 33.4 g/dl (32-36); Mean Corpuscular Hemoglobin 29.1 pg (26-34); Mean Corpuscular Volume 86.9 fl (80-100); Mean Platelet Volume 9.1 fl (7.4-10.4); Monocytes Percent Auto 9.6 % (2.6-8.5); Neutrophils Absolute Auto 5.8 K/mm3 (1.3-6.7); Neutrophils Percent Auto 58.2 % (45.5-73.1); Platelet Count Result 287 k/mm3 (150-375); Red Blood Count 4.44 M/mm3 (4.6-6.20); Red Cell Distribution Width 12.5 % (11.5-14.5)
[2021-06-06] MEDS: ONDANSETRON INJ 4 MG/2 ML VIAL IV PUSH (06:17)
[2021-06-06] MEDS: MORPHINE SULFATE (*CRX) 4 MG/ML INJ IV PUSH (06:18)
[2021-06-06 06:19] VITALS: BP 136/79; PULSE 54; RESP 16; O2SAT 11
[2021-06-06] MEDS: SODIUM CHLORIDE 0.9% IV 1,000 ML 999 ML IV CONT (06:19)
[2021-06-06 06:34] LABS: Alanine Aminotransferase 30 U/L (4-50); Albumin Level 4.1 g/dL (3.5-5.1); Alkaline Phosphatase 77 U/L (38-126); Anion Gap 8 mmol/L (8-16); Aspartate Amino Transferase 26 U/L (17-59); Bilirubin,Total 0.4 mg/dL (0.2-1.3); Blood Urea Nitrogen 14 mg/dL (9-20); Calcium 9.2 mg/dL (8.4-10.2); Carbon Dioxide 25 mmol/L (22-30); Chloride 100 mmol/L (98-107); Estimated CRCL calculation 127 ml/min; Estimated Glomerular Filt Rate > 60; Glucose 123 mg/dL (65-110); Lipase 62 U/L (23-300); Potassium 3.9 mmol/L (3.4-5.0); Sodium 133 mmol/L (137-145)
[2021-06-06 06:51] LABS: Add Urine Microscopic? NO; Appearance Urine Clear (Clear); Bilirubin Urine Negative (Negative); Blood Urine Negative (Negative); Color Urine Yellow (Yellow); Glucose Urine UA Negative (Negative); Ketones Urine Negative (Negative); Leukocyte Esterase Ur Negative LEU/UL (Negative); Nitrate Urine Negative (Negative); Protein Urine Negative (Negative); Urobilinogen Urine Negative mg/dL (<2.0)
[2021-06-06 07:05] VITALS: TEMP 36.6
[2021-06-06 07:20] LABS: Troponin I < 0.012 ng/mL (0.000-0.034)
[2021-06-06 08:12] VITALS: BP 131/69; PULSE 55; RESP 17; O2SAT 98
== END 2021-06-06 08:14 | disposition home or self-care (01) ==
PROVIDERS: Emergency Provider Emergency Medicine
DX: R10.11 Right upper quadrant pain (principal); F17.210 Nicotine dependence, cigarettes, uncomplicated
CPT/HCPCS: 36415; 71260; 74177; 80053; 81003; 83690; 84484; 85025; 93005; 96361; 96374; 96375; 99284; J2270; J2405; J7030; Q9967

== ENCOUNTER 2021-10-05 22:52 | Emergency (ER) | payer OTHER, SELFPAY ==
--- NOTE | ~2021-10-05 | CT_ITS ---
EXAMINATION: CT abdomen pelvis w con DATE: 10/06/2021 01:34 INDICATION: Right upper quadrant abdominal pain for one day. Bile duct stent. TECHNIQUE: Computed tomography (CT) of the abdomen and pelvis was performed with 100 CC Omnipaque 350 intravenous contrast. Automated exposure control and iterative reconstruction technique were employe d. Exam dose: 921.52 mGy-cm total exam DLP. COMPARISON: 06/06/2021 CT chest abdomen pelvis . FINDINGS: The lower lung zones are clear of infiltrate or consolidation. Normal heart size. No perica rdial or pleural effusion. Status post cholecystectomy. A stent is noted in the common bile duct. No bile duct dilatation. No hepatic, pancreatic, splenic, adrenal or renal space-occupying mass lesion. No pancreatic duct dil atation. No pancreatic calcification. Normal caliber of the abdominal aorta. No intraperitoneal or retroperitoneal or pelvic mass lesion or adenopathy or ascites. The urinary bladder and prostate gland are unremarkable. Normal appendix. No bowel obstruction, bowel wall thickening, pneumatosis or intraperitoneal free air . Very small fat-containing umbilical hernia. No suspicious osteolytic or osteoblastic lesions. Mild anterior wedge compression fracture deformity of T11, stable since 06/06/2021. IMPRESSION: Internal biliary stent; no bile duct dilatation Normal appendix Stable mild anterior wedge compression fracture deformity of T11 Reviewed, dictated and finalized at [facility] Reviewed, dictated and finalized at [facility].
[2021-10-05 22:55] VITALS: BP 150/80; PULSE 85; RESP 16; TEMP 36.8; O2SAT 97
[2021-10-05] MEDS: SODIUM CHLORIDE 0.9% IV 1,000 ML 999 ML IV CONT (23:26)
[2021-10-05 23:38] LABS: Basophils Absolute Auto 0.1 K/mm3 (0.0-0.1); Basophils Percent Auto 0.8 % (0.2-1.2); Eosinophils Absolute Auto 0.3 K/mm3 (0-0.3); Eosinophils Percent Auto 2.5 % (0-4.4); Hematocrit 39.6 % (42.0-52.0); Hemoglobin 12.9 g/dL (14.0-18.0); Immature Granulocyte Absolute 0.03 K/mm3 (0.00-0.031); Immature Granulocyte Percent A 0.3 % (0-0.5); Lymphocytes Absolute Auto 3.81 K/mm3 (0.9-3.2); Mean Corpuscular HGB Conc 32.6 g/dl (32-36); Mean Corpuscular Hemoglobin 29.4 pg (26-34); Mean Corpuscular Volume 90.2 fl (80-100); Monocytes Absolute Auto 0.9 K/mm3 (0.1-0.6); Monocytes Percent Auto 8.4 % (2.6-8.5); Neutrophils Absolute Auto 6.1 K/mm3 (1.3-6.7); Platelet Count Result 286 k/mm3 (150-375); Red Blood Count 4.39 M/mm3 (4.6-6.20); Red Cell Distribution Width 13.5 % (11.5-14.5); White Blood Count 11.2 K/mm3 (4.5-10.0)
--- NOTE | 2021-10-05 23:42 | ED.ABDPAIN ---
HPI - Abdominal Pain General Chief Complaint: Abdominal Pain Stated Complaint: UPPER ABD PAIN Time Seen by Provider: 10/05/21 23:03 Source: patient Mode of arrival: ambulatory Limitations: no limitations History of Present Illness HPI narrative: Patient is a 36-year-old male complaining of right upper quadrant pain, 8 out of 10, sharp, nonradiating accompanied by nausea started tonight. Patient states that he had cholecystectomy last year, few months after he had a bile duct blockage and had to have stent placed, which was done at [place]. Related Data Allergies Allergy/AdvReac Type Severity Reaction Status Date / Time No Known Allergies Allergy Verified 10/05/21 23:27 Review of Systems Review of Systems: All systems reviewed & are unremarkable except as noted in HPI and below Constitutional: Constitutional: Denies body ache(s), Denies chills, Denies excessive sweating, Denies fatigue, Denies fever(s), Denies headache(s), Denies lethargy, Denies malaise, Denies weakness and Denies weight loss Eyes: Eyes: Denies blurry vision, Denies change in vision and Denies loss of vision ENT: Denies dizziness, Denies ear discharge, Denies headache(s), Denies lip swelling, Denies epistaxis, Denies nasal congestion, Denies neck pain, Denies throat swelling and Denies tongue swelling Cardiovascular: Cardiovascular: Denies chest pain, Denies chest pain at rest, Denies chest pain with activity, Denies diaphoresis, Denies rapid heart rate, Denies edema, Denies irregular heart rhythm, Denies lightheadedness, Denies palpitations, Denies dyspnea and Denies dyspnea on exertion Respiratory: Respiratory: Denies chest congestion, Denies cough, Denies hemoptysis, Denies dyspnea and Denies dyspnea on exertion Gastrointestinal: Gastrointestinal: Denies melena, Denies hematochezia, Denies diarrhea, Denies vomiting and Denies hematemesis Musculoskeletal: Musculoskeletal: Denies abnormal gait, Denies deformity, Denies joint swelling, Denies limited range of motion, Denies neck pain and Denies numbness Neurologic: Denies Abnormal speech present, Denies abnormal gait, Denies confusion, Denies dizziness, Denies headache(s), Denies focal weakness, Denies loss of vision, Denies numbness, Denies Other visual disturbances, Denies Sensory deficit (Neuro) and Denies weakness Psychiatric: Psychiatric: Denies confusion, Denies depression, Denies auditory hallucinations, Denies homicidal ideation and Denies suicidal ideation Endocrine: Endocrine: Denies cold intolerance, Denies excessive sweating, Denies fatigue, Denies heat intolerance and Denies palpitations Hematologic/Lymphatic: Hematologic/Lymphatic: Denies easy bleeding and Denies easy bruising Allergic/Immunologic: Allergic/Immunologic: Denies lip swelling, Denies throat swelling and Denies tongue swelling PMFSH Past Medical History Medical History Biliary colic BMI 34.0-34.9,adult Cholecystitis History of bronchitis RUQ abdominal pain Smoker Surgical History Surgical History S/P foot surgery, left Family History Family History Mother Cerebrovascular accident Acute myocardial infarction Unknown Diabetes mellitus Cerebrovascular accident Hypertension Social History Social History Smoking packs per day: 1 Smoking cigarettes per day: 20.0 Years smoked: 15 Smoking pack-years: 15.00 Smoking status: Current every day smoker Tobacco type: cigarettes Alcohol intake: never Substance use: never Substance use type: does not use Spiritual care concerns: No Exam Const: General: cooperative, healthy appearing, comfortable, no acute distress, well developed, alert and awake; No confusion Orientation/consciousness: oriented to person, oriented to place, oriented to time, patient oriented x3 and No confusion Jane
[2021-10-05 23:56] LABS: Alanine Aminotransferase 24 U/L (4-50); Albumin Level 4.1 g/dL (3.5-5.1); Alkaline Phosphatase 65 U/L (38-126); Anion Gap 5 mmol/L (8-16); Aspartate Amino Transferase 24 U/L (17-59); Bilirubin,Total 0.2 mg/dL (0.2-1.3); Blood Urea Nitrogen 16 mg/dL (9-20); Calcium 8.7 mg/dL (8.4-10.2); Carbon Dioxide 29 mmol/L (22-30); Chloride 104 mmol/L (98-107); Estimated CRCL calculation 143 ml/min; Estimated Glomerular Filt Rate > 60; Glucose 112 mg/dL (65-110); Lipase 103 U/L (23-300); Potassium 3.9 mmol/L (3.4-5.0); Sodium 138 mmol/L (137-145)
[2021-10-06] MEDS: MORPHINE SULFATE (*CRX) 2 MG/ML INJ IV PUSH (00:01)
[2021-10-06] MEDS: PROMETHAZINE HCL 25 MG/ML AMPUL 12.5 MG IV PUSH (00:01)
[2021-10-06 03:13] VITALS: BP 126/82; PULSE 72; RESP 15; O2SAT 99
== END 2021-10-06 03:14 | disposition home or self-care (01) ==
PROVIDERS: Emergency Provider Emergency Medicine
DX: K80.50 Calculus of bile duct without cholangitis or cholecystitis without obstruction (principal); F17.210 Nicotine dependence, cigarettes, uncomplicated
CPT/HCPCS: 36415; 74177; 80053; 83605; 83690; 85025; 96361; 96374; 96375; 99284; J2270; J2550; J7030; Q9967